=== PATIENT | female | born 1965 | race Caucasian/White ===

== ENCOUNTER 2017-11-01 20:42 | Emergency (ER) | payer OTHER, BC ==
[2017-11-01 20:56] VITALS: BP 141/90; PULSE 74; TEMP 97.9; BMI 33.9
[2017-11-01] MEDS ORDERED: CYCLOBENZAPRINE HCL 10 MG TABLET (FP) PO ONE (21:18)
[2017-11-01] MEDS ORDERED: KETOROLAC TROMETHAMINE 60 MG/2 ML VIAL IM ONE (21:18)
[2017-11-01] MEDS ORDERED: CYCLOBENZAPRINE HCL 10 MG TABLET (FP) ONE (21:20)
[2017-11-01] MEDS ORDERED: KETOROLAC TROMETHAMINE 60 MG/2 ML VIAL ONE (21:20)
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
== END 2017-11-01 21:58 | disposition home or self-care (01) ==
LOC: JERFT 20:42
PROC: 3E0233Z Introduction of Anti-inflammatory into Muscle, Percutaneous Approach (ICD-10-PCS; principal; 2017-11-01)
DX: S16.1XXA Strain of muscle, fascia and tendon at neck level, initial encounter (principal); S29.012A Strain of muscle and tendon of back wall of thorax, initial encounter; V43.52XA Car driver injured in collision with other type car in traffic accident, initial encounter; Y92.488 Other paved roadways as the place of occurrence of the external cause; Y93.89 Activity, other specified; Y99.8 Other external cause status
CPT/HCPCS: 72050-TC; 72070-TC; 99281-25

== ENCOUNTER 2018-07-20 13:48 | Emergency (ER) | payer OTHER, BC ==
[2018-07-20 14:06] VITALS: BP 125/86; PULSE 74; TEMP 97.4; BMI 33.9
--- NOTE | 2018-07-20 14:45 | PDOC ---
Attending Attestation - Resident Resident Name: Manoj York - ED Attending Attestation I have performed the following: I have examined & evaluated the patient, The case was reviewed & discussed with the resident, I agree w/resident's findings & plan, Exceptions are as noted - HPI HPI: 07/20/18 15:27 Pain in the anterior right knee. Mild increase in swelling. No sensory or circulatory deficits. Strength full and symmetric. - Physicial Exam PE: 07/20/18 15:29 As above. In addition, lungs are clear. Respiratory rate is normal with full oxygen saturation. No palpable cords or visible edema - Medical Decision Making 07/20/18 15:29 Assessment: Arthritis versus Keller's cyst versus muscle strain versus occult DVT Plan: Ultrasound is negative. There is some fluid suggestive of a Keller cyst. Symptomatic treatment and follow-up with orthopedist as directed. Fully ambulatory and in no significant pain or other distress upon discharge to follow -up as directed
[2018-07-20] MEDS ORDERED: IBUPROFEN 600 MG TABLET (FP) PO ONE ×2 (14:54→15:02)
--- NOTE | 2018-07-20 15:01 | PDOC ---
History of Present Illness - General Chief Complaint: Pain, Acute Stated Complaint: bilateral knee pain Time Seen by Provider: 07/20/18 14:45 - History of Present Illness Initial Comments: 07/20/18 15:01 53 yo morbidly obese female is here with bilateral knee pain. She fell down 4 weeks ago on both knees and has had pain ever since. Today the pain was bothering her so she went to an urgent care center who advised her to come to the ED to make sure she doesn't have a blood clot. She has no calf pain, has no hx of blood clots, no chest pain, no cough, no hx of malignancy. She did recently travel to [place] from [place]. She has focal tenderness right below the patella. No recent fevers, chills, or infections. No SOB or difficulty breathing. Patient is able to ambulate without difficulty, but experiences pain while walking on her knees. 07/20/18 15:02 Past History - Past Medical History Allergies/Adverse Reactions: Allergies Allergy/AdvReac Type Severity Reaction Status Date / Time No Known Allergies Allergy Verified 11/01/17 20:49 Home Medications: Ambulatory Orders metFORMIN HCL [Glucophage -] 500 mg PO BID 02/01/16 COPD: No DVT: No Diabetes: Yes (niddm) Hypercholesterolemia: Yes - Surgical History Cholecystectomy: Yes - Suicide/Smoking/Psychosocial Hx Smoking History: Never smoked Have you smoked in the past 12 months: No Hx Alcohol Use: No Drug/Substance Use Hx: No Substance Use Type: None Review of Systems - Review of Systems Comments:: 07/20/18 15:05 CONSTITUTIONAL: Absent: fever, chills, diaphoresis, generalized weakness, malaise, loss of appetite HEENT: Absent: rhinorrhea, nasal congestion, throat pain, throat swelling, difficulty swallowing, mouth swelling, ear pain, eye pain, visual Changes CARDIOVASCULAR: Absent: chest pain, syncope, palpitations, irregular heart rate, lightheadedness , peripheral edema RESPIRATORY: Absent: cough, shortness of breath, dyspnea with exertion, orthopnea, wheezing, stridor, hemoptysis GASTROINTESTINAL: Absent: abdominal pain, abdominal distension, nausea, vomiting, diarrhea, constipation, melena, hematochezia GENITOURINARY: Absent: dysuria, frequency, urgency, hesitancy, hematuria, flank pain, genital pain MUSCULOSKELETAL: Present: Arthralgia Absent: myalgia, joint swelling SKIN: Absent: rash, itching, pallor HEMATOLOGIC/IMMUNOLOGIC: Absent: easy bleeding, easy bruising, lymphadenopathy, frequent infections ENDOCRINE: Absent: unexplained weight gain, unexplained weight loss, heat intolerance, cold intolerance NEUROLOGIC: Absent: headache, focal weakness or paresthesias, dizziness, unsteady gait, seizure, mental status changes, bladder or bowel incontinence PSYCHIATRIC: Absent: anxiety, depression, suicidal or homicidal ideation, hallucinations. *Physical Exam - Vital Signs Last Vital Signs Temp Pulse Resp BP Pulse Ox 97.4 F L 74 17 125/86 98 07/20/18 13:49 07/20/18 13:49 07/20/18 13:49 07/20/18 13:49 07/20/18 13:49 - Physical Exam Comments: 07/20/18 15:06 Knees: Negative positive drawer test bilaterally. Negative posterior drawer test b/l. Negative bert sign b/l. 2+ pulses in both ankles. full ROM in both knees. No erythema in either knee. There is focal TTP in the R apophyses. GENERAL: Well developed, well nourished. Awake and alert. No acute distress. HEENT: Normocephalic, atraumatic. PERRLA, EOMI. No conjunctival pallor. Sclera are non- icteric. Moist mucous membranes. Oropharynx is clear. NECK: Supple. Full ROM. No JVD. No thyromegaly. No lymphadenopathy. CARDIOVASCULAR: Regular rate and rhythm. No murmurs, rubs, or gallops. Distal pulses are 2+ and symmetric. PULMONARY: No evidence of respiratory distress. Lungs clear to auscultation bilaterally. No wheezing, rales or rhonchi. ABDOMINAL: Soft. Non-tender. Non-distended. No rebound or guarding. No organomegaly. Normoactive bowel sounds. MUSCULOSKELETAL Limited ROM at Left ankle due to prior sprain. No bony deformities or tenderness. No CVA tenderness. EXTREMITIES: No cyanosis. No clubbing. No edema. No calf tenderness. SKIN: Warm and dry. Normal capillary refill. No rashes. No jaundice. NEUROLOGICAL: Alert, awake, appropriate. Cranial nerves 2-12 intact. Normal speech. Gait is normal without ataxia. PSYCHIATRIC: Cooperative. Good eye contact. Appropriate mood and affect. Medical Decision Making - Medical Decision Making 07/20/18 15:08 53 yo F here with b/l knee pain sent in from [facility] to rule out DVT. Duplex scan was performed in ED and showed no digns of DVT. DD includes but not limited to: Meniscus injury, bony injury, knee bruise/sprain , bakers cyst. Plan: Duplex US, ibuprofen, Efrem bandage wrap, DC w ortho FU. Will DC patient with orthopedic follow up to receive an MRI and manage her pain. *DC/Admit/Observation/Transfer Diagnosis at time of Disposition: Knee pain, bilateral - Discharge Dispostion Disposition: HOME Condition at time of disposition: Stable Decision to Admit order: No - Referrals Referrals: Myla Walsh MD [Non Staff, Medical] - Bryan Houston MD [Non Staff, Medical] - Amaury Camarillo MD [Non Staff, Medical] - Yogesh Hayes MD [Non Staff, Medical] - - Patient Instructions Printed Discharge Instructions: DI for Knee Pain Additional Instructions: You came to the ER because you had pain in your knee. We did an ultrasound on your legs which showed no blood clots. It is important you schedule a follow up appointment with an orthopedist in the next week to figure out what is causing your knee pain. We have provided multiple orthopedists numbers if you don't have one. An MRI would be the best test for you. Take ibuprofin/motrin/advil as needed for pain control. Please come back to the ER immediately if your pain worsens, your knee becomes red or swollen, you develop a fever or have any other new or worsening concerns. Thank you for coming to the [facility] ED. We hope you feel better soon. Print Language: DOMINICAN - Post Discharge Activity
== END 2018-07-20 15:44 | disposition home or self-care (01) ==
LOC: FER 13:48
DX: M25.561 Pain in right knee (principal); W18.39XA Other fall on same level, initial encounter; Y93.89 Activity, other specified; Y92.9 Unspecified place or not applicable; E11.9 Type 2 diabetes mellitus without complications; E78.00 Pure hypercholesterolemia, unspecified
CPT/HCPCS: 93971-TC; 99281-25

== ENCOUNTER 2019-01-30 20:01 | Emergency (ER) | payer BC ==
[2019-01-30 20:21] VITALS: BP 138/78; PULSE 62; TEMP 97.8; BMI 34.1
--- NOTE | 2019-01-30 21:00 | PDOC ---
History of Present Illness <NeftaliZita - Last Filed: 01/30/19 23:56> - History of Present Illness Initial Comments: 01/30/19 21:00 Ms. Gallo is a 53 yo female w/ pmh of obesity and NIDDM who presents for evaluation of chest pain and GERD. Ms. Gallo reports she was previously in her normal state of health before this however became concerned when she started to experience GERD symptoms around 1830. Her chest pain started at around 1900 and was midline, non-pleuritic, and non-radiating. Pain has abated at this time however she is very nervous as she was "looking on the internet" regarding her pain. Reports she took 81mg of ASA at home. The patient denies shortness of breath, headache and dizziness. Denies fever, chills, nausea, vomit, diarrhea and constipation. Denies dysuria, frequency, urgency and hematuria. <Nicko Arshad - Last Filed: 01/31/19 00:00> - General Chief Complaint: Chest Pain Stated Complaint: CHEST PAIN Time Seen by Provider: 01/30/19 21:00 Past History <Robert Lindsayafshin Levineh - Last Filed: 01/30/19 23:56> - Past Medical History COPD: No DVT: No Diabetes: Yes (niddm) Hypercholesterolemia: Yes - Surgical History Cholecystectomy: Yes - Suicide/Smoking/Psychosocial Hx Smoking History: Never smoked Have you smoked in the past 12 months: No Information on smoking cessation initiated: No Hx Alcohol Use: No Drug/Substance Use Hx: No Substance Use Type: None <Nicko Arshad - Last Filed: 01/31/19 00:00> - Past Medical History Allergies/Adverse Reactions: Allergies Allergy/AdvReac Type Severity Reaction Status Date / Time No Known Allergies Allergy Verified 11/01/17 20:49 Home Medications: Ambulatory Orders metFORMIN HCL [Glucophage -] 500 mg PO BID 02/01/16 Review of Systems - Review of Systems Comments:: 01/30/19 21:00 GENERAL/CONSTITUTIONAL: No fever or chills. No weakness. HEAD, EYES, EARS, NOSE AND THROAT: No change in vision. No ear pain or discharge. No sore throat. CARDIOVASCULAR: +Chest pain as described. No shortness of breath RESPIRATORY: No cough, wheezing, or hemoptysis. GASTROINTESTINAL: +Reflux symptoms. No nausea, vomiting, diarrhea or constipation. GENITOURINARY: No dysuria, frequency, or change in urination. MUSCULOSKELETAL: No joint or muscle swelling or pain. No neck or back pain. SKIN: No rash NEUROLOGIC: No headache, vertigo, loss of consciousness, or change in strength/ sensation. ENDOCRINE: No increased thirst. No abnormal weight change HEMATOLOGIC/LYMPHATIC: No anemia, easy bleeding, or history of blood clots. ALLERGIC/IMMUNOLOGIC: No hives or skin allergy. <Nicko Arshad - Last Filed: 01/31/19 00:00> *Physical Exam - Vital Signs Last Vital Signs Temp Pulse Resp BP Pulse Ox 97.8 F 62 20 138/78 99 01/30/19 20:18 01/30/19 20:18 01/30/19 20:18 01/30/19 20:18 01/30/19 20:18 <Zita Lindsay - Last Filed: 01/30/19 23:56> - Vital Signs Last Vital Signs Temp Pulse Resp BP Pulse Ox 97.8 F 62 20 138/78 99 01/30/19 20:18 01/30/19 20:18 01/30/19 20:18 01/30/19 20:18 01/30/19 20:18 - Physical Exam Comments: 01/30/19 21:00 GENERAL: Awake, alert, and fully oriented, in no acute distress HEAD: No signs of trauma, normocephalic, atraumatic EYES: PERRLA, EOMI, sclera anicteric, conjunctiva clear ENT: Auricles normal inspection, hearing grossly normal, nares patent, oropharynx clear without exudates. Moist mucosa NECK: Normal ROM, supple, no lymphadenopathy, JVD, or masses LUNGS: No distress, speaks full sentences, clear to auscultation bilaterally HEART: Regular rate and rhythm, normal S1 and S2, no murmurs, rubs or gallops, peripheral pulses normal and equal bilaterally. ABDOMEN: Soft, nontender, normoactive bowel sounds. No guarding, no rebound. No masses EXTREMITIES: +Minor 1+ pedal edema JESSICA. Otherwise normal inspection, Normal range of motion, no edema. No clubbing or cyanosis. NEUROLOGICAL: Cranial nerves II through XII grossly intact. Normal speech, normal gait, no focal sensorimotor deficits SKIN: Warm, Dry, normal turgor, no rashes or lesions noted. <Nicko Arshad - Last Filed: 01/31/19 00:00> Heart Score/ECG Review - History History: Slightly suspicious - Electrocardiogram EKG: Non specific repolarization disturbance - Age Age: 45-65 - Risk Factors Risk Factors Heart Score: Yes Hx Diabetes, Yes Hx Obesity Based on the list above the patient has:: 1-2 risk factors - Troponin Troponin: </= normal limit - Score Heart Score - Total: 3 <Nicko Arshad - Last Filed: 01/31/19 00:00> ED Treatment Course - LABORATORY CBC & Chemistry Diagram: 01/30/19 21:35 01/30/19 21:35 - ADDITIONAL ORDERS Additional order review: Laboratory Results 01/30/19 01/30/19 23:08 21:35 Sodium 139 Potassium 3.8 Chloride 103 Carbon Dioxide 30 Anion Gap 7 L BUN 11 Creatinine 0.7 Creat Clearance w eGFR 87.53 Random Glucose 193 H Calcium 8.8 Total Bilirubin 0.3 AST 27 ALT 66 H Alkaline Phosphatase 100 Creatine Kinase 61 Troponin I < 0.02 0.02 Total Protein 7.4 Albumin 3.8 01/30/19 21:35 RBC 4.60 MCV 85.0 MCHC 33.7 RDW 13.1 MPV 8.8 Neutrophils % 44.4 Lymphocytes % 46.1 H Monocytes % 5.8 Eosinophils % 3.0 Basophils % 0.7 <Zita Lindsay - Last Filed: 01/30/19 23:56> - LABORATORY CBC & Chemistry Diagram: 01/30/19 21:35 01/30/19 21:35 <Nicko Arshad - Last Filed: 01/31/19 00:00> Medical Decision Making - Medical Decision Making 01/30/19 21:35 Ms. Gallo is a 53 yo female w/ pmh as described who presents for evaluation of symptoms concerning for ACS vs. GERD vs. anxiety symptoms. Patient evaluated with cardiac workup as below including EKG and CXR. 01/31/19 00:00 Labs with repeat trop negative. EKG non-concerning. CXR negative. No concern for acute process at this time. Discharging to home. <Nicko Arshad - Last Filed: 01/31/19 00:00> *DC/Admit/Observation/Transfer <Zita Lindsay - Last Filed: 01/30/19 23:56> <Nicko Arshad - Last Filed: 01/31/19 00:00> Diagnosis at time of Disposition: Atypical chest pain GERD (gastroesophageal reflux disease) Qualifiers: Esophagitis presence: without esophagitis Qualified Code(s): K21.9 - Gastro- esophageal reflux disease without esophagitis - Discharge Dispostion Disposition: HOME Condition at time of disposition: Stable - Referrals Referrals: Kristal Escoto [Primary Care Provider] - - Patient Instructions Printed Discharge Instructions: DI for Gastroesophageal Reflux Disease (GERD), DI for Atypical Chest Pain Additional Instructions: please follow up with your regular physician Try OTC antiacids, maaalox or zantac - Post Discharge Activity
[2019-01-30] MEDS ORDERED: ASPIRIN 81 MG CHEWABLE TABLETS PO ONE (21:26)
[2019-01-30] MEDS ORDERED: FAMOTIDINE 20 MG/50 ML IVPB 20 MG/50 ML MG IVPB ONE (21:26)
[2019-01-30] MEDS ORDERED: SODIUM CHLORIDE 1,000 ML IV STA (21:26)
[2019-01-30 21:58] LABS: BASO % 0.7 % (0-2.0); HEMATOCRIT 39.1 % (32.4-45.2); HEMOGLOBIN 13.2 GM/dL (10.7-15.3); LYMPH % 46.1 % (8-40); MCH 28.7 pg (25.7-33.7); MCHC 33.7 g/dl (32.0-36.0); MEAN PLT VOLUME 8.8 fl (7.5-11.1); MONO % 5.8 % (3.8-10.2); NEUT % 44.4 % (42.8-82.8); PLATELET COUNT 215 K/MM3 (134-434); RDW 13.1 % (11.6-15.6); WHITE BLOOD COUNT 5.9 K/mm3 (4.0-10.0)
[2019-01-30 22:09] LABS: ALBUMIN 3.8 g/dl (3.4-5.0); ALK PHOS 100 U/L (45-117); ANION GAP 7 MMOL/L (8-16); BILIRUBIN,TOTAL 0.3 mg/dL (0.2-1); BLOOD UREA NITROGEN 11 mg/dL (7-18); CALCIUM 8.8 mg/dL (8.5-10.1); CHLORIDE 103 mmol/L (98-107); CO2 30 mmol/L (21-32); CREATININE 0.7 mg/dL (0.55-1.3); GLUCOSE,RANDOM 193 mg/dL (74-106); POTASSIUM 3.8 mmol/L (3.5-5.1); SGOT/AST 27 U/L (15-37); SGPT/ALT 66 U/L (13-61); SODIUM 139 mmol/L (136-145); TOT PROT 7.4 g/dl (6.4-8.2)
--- NOTE | 2019-01-30 22:18 | PDOC ---
Attending Attestation - HPI HPI: 01/30/19 22:34 The patient is a 53 year old female, with a significant past medical history of NIDDM, who presents to the emergency department with, 45min of burning chest discomfort. Patient notes googling her symptoms at which time she became nervous and began experiencing chest pain, that has now resolved. She denies recent fevers, chills, headache or dizziness. She denies recent nausea, vomit, diarrhea or constipation. She denies recent dysuria, frequency, urgency or hematuria. She denies recent chest pain or shortness of breath. Allergies: NKDA - Physicial Exam PE: 01/30/19 22:34 GENERAL: Well-appearing, well-nourished. No apparent distress. HEENT: Normocephalic, atraumatic. PERRL, EOM intact. CARDIOVASCULAR: Normal S1, S2. Regular rate and rhythm. PULMONARY: Clear to auscultation bilaterally. ABDOMEN: Soft, non-distended, non-tender. EXTREMITIES: +Blt pedal edema. Normal ROM in all four extremities. SKIN: Warm, dry. No rash NEUROLOGICAL: No focal neurological deficits. <Litzy Farfan - Last Filed: 01/30/19 22:34> - Resident Resident Name: Nicko Arshad - ED Attending Attestation I have performed the following: I have examined & evaluated the patient, The case was reviewed & discussed with the resident, I agree w/resident's findings & plan, Exceptions are as noted - Medical Decision Making 01/30/19 23:55 both sets of cardiac enzymes are negative crx napd ekg NSR @ 61 bpm labs reviewed pt;s symptoms resolved imp atypical chest pain/GERD <Zita Lindsay - Last Filed: 01/30/19 23:56> Attestations - Attestations 01/30/19 22:35 Documentation prepared by Litzy Farfan, acting as medical affairs specialist for Zita Lindsay MD. <Litzy Farfan - Last Filed: 01/30/19 22:34>
[2019-01-31] MEDS ORDERED: FAMOTIDINE 20 MG/50 ML IVPB 20 MG/50 ML MG IVPB ONE (00:02)
[2019-01-31] MEDS ORDERED: ASPIRIN 81 MG CHEWABLE TABLETS ONE (00:02)
--- NOTE | 2019-01-31 14:28 | EKG ---
Test Reason : Blood Pressure : / mmHG Vent. Rate : 061 BPM Atrial Rate : 061 BPM P-R Int : 164 ms QRS Dur : 100 ms QT Int : 432 ms P-R-T Axes : 036 026 048 degrees QTc Int : 434 ms POOR DATA QUALITY, INTERPRETATION MAY BE ADVERSELY AFFECTED NORMAL SINUS RHYTHM POSSIBLE LEFT ATRIAL ENLARGEMENT BORDERLINE ECG WHEN COMPARED WITH ECG OF 04-MAR-2015 01:33, QRS AXIS SHIFTED LEFT CRITERIA FOR SEPTAL INFARCT ARE NO LONGER PRESENT ST NO LONGER DEPRESSED IN LATERAL LEADS T WAVE INVERSION NO LONGER EVIDENT IN LATERAL LEADS Confirmed by MD Chilo, Yogesh ([id number]) on 01/31/2019 2:28:24 PM Referred By: Confirmed By:Yogesh Woo MD
== END 2019-01-31 00:20 | disposition home or self-care (01) ==
LOC: JER 20:01
PROC: 3E033GC Introduction of Other Therapeutic Substance into Peripheral Vein, Percutaneous Approach (ICD-10-PCS; principal; 2019-01-30)
DX: R07.9 Chest pain, unspecified (principal); K21.9 Gastro-esophageal reflux disease without esophagitis; E11.9 Type 2 diabetes mellitus without complications; Z79.84 Long term (current) use of oral hypoglycemic drugs; E66.9 Obesity, unspecified; Z68.34 Body mass index [BMI] 34.0-34.9, adult
CPT/HCPCS: 36415; 71046-TC-FY; 80053; 82550; 84484; 85025; 93005; 93010; 99281-25; J7030

== ENCOUNTER 2019-09-18 20:04 | Emergency (ER) | payer BC, OTHER ==
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
[2019-09-18 20:24] VITALS: BP 137/79; PULSE 61; TEMP 97.8; BMI 33.3
[2019-09-18] MEDS ORDERED: ACETAMINOPHEN 500 MG TABLET (FP) PO ONE (22:41)
[2019-09-18] MEDS ORDERED: ACETAMINOPHEN 500 MG TABLET (FP) ONE (22:43)
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
== END 2019-09-19 00:30 | disposition home or self-care (01) ==
LOC: JERFT 20:04
DX: S13.4XXA Sprain of ligaments of cervical spine, initial encounter (principal); V43.52XA Car driver injured in collision with other type car in traffic accident, initial encounter; Y92.414 Local residential or business street as the place of occurrence of the external cause; Y93.89 Activity, other specified; Y99.8 Other external cause status
CPT/HCPCS: 70450-TC; 72125-TC; 99281-25

== ENCOUNTER 2025-07-16 12:42 | Emergency (ER) | payer BC ==
[2025-07-16 12:57] VITALS: BP 135/85; PULSE 65; RESP 18; TEMP 97.7; BMI 32.9
[2025-07-16] MEDS ORDERED: DIPHTH,PERTUSS(ACELL),TET 0.5 ML DISP.SYRIN IM ONE (13:31)
[2025-07-16] MEDS: DIPHTH,PERTUSS(ACELL),TET 0.5 ML DISP.SYRIN IM ONE (13:50)
== END 2025-07-16 13:51 | disposition home or self-care (01) ==
LOC: JERFT 12:42
PROC: 0HQGXZZ Repair Left Hand Skin, External Approach (ICD-10-PCS; principal; 2025-07-16)
PROC: 3E0234Z Introduction of Serum, Toxoid and Vaccine into Muscle, Percutaneous Approach (ICD-10-PCS; 2025-07-16)
DX: S61.412A Laceration without foreign body of left hand, initial encounter (principal); Z23 Encounter for immunization; W26.0XXA Contact with knife, initial encounter
CPT/HCPCS: 90715; 99284-25